=== PATIENT | female | born 1995 | race Caucasian/White ===

== ENCOUNTER 2025-05-19 14:48 | Outpatient (AMB) | payer OTHER, SELFPAY ==
--- OUTSIDE RECORDS SUMMARY | 2025-05-14 05:40 | XMS_ITS ---
Author Organization [facility] Address [address] [address] Care Team Providers Care Community Development Manager Name Role Phone VALORIE WINKLER M.D. Primary Care Provider Paty Peng Unavailable [phone] Allergies No Known Allergies Results Component Value Reference Range Notes Test, Urine Reviewed date:05/14/2025 12:12:48 PM Interpretation: Performing Lab: Notes/Report: Test, Urine Negative REASON FOR VISIT LEEP Medications Medication SIG (Take, Route, Frequency, Duration) Notes Start Date End Date Status Amphetamine-Dextroamp hetamine 10 MG Oral; Duration: 30 Days Active Blisovi FE 10/19 1-20 MG-MCG 1 tablet Orally Once a day; Duration: 90 days 02/10/2025 Active Dupixent 300 MG/2ML Subcutaneous; Duration: 28 Active Mirtazapine 15 MG Oral; Duration: 90 Going back to trazodone after this month Active Ativan 0.5 MG 1 tablet as needed Orally NIGHT BEFORE PROCEDURE AND DAY OF PROCEDURE, THEN BID, PRN; Duration: 7 days 04/19/2025 Active Flonase Active Zofran 4 MG 1 tablet Orally As needed; Duration: 30 days 10/30/2019 Active Vital Signs Height 60 in 05/14/2025 Weight 110 lbs 05/14/2025 BMI 21.48 kg/m2 05/14/2025 Blood pressure systolic 120 mm Hg 05/14/20 Blood pressure diastolic 82 mm Hg 025 Temperature 98.1 degrees Fahrenheit 05/14/20 LMP: 05/04/25 Encounters Encounter Location Date Provider Diagnosis [facility] [address] [place] [address] 05/14/2025 Paty Singh Carcinoma in situ of cervix, 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 Assessments Encounter Date Diagnosis (ICD Code) Assessment Notes Treatment Notes Treatment Clinical Notes Section Notes 05/14/2025 Carcinoma in situ of cervix, unspecified (ICD-10 - D06.9) Plan Of Treatment Next Appt Details Follow Up: 1 Week, Reason: Provider Name:Paty castorena, 02/16/2026 02:40:00 PM, [address], [address], [place], [address], Procedure Notes * Category Sub-Category Detail Notes LEEP (Loop electrosurgical excision procedure) Procedure Detail: General procedure, indicatio ns, risks, benefits, alternative treatments, and expected outcomes have been discussed with this patient. She has had an opportunity to ask questions, and all questions have been answered by me. She verbalizes understanding and to the best of my knowledge I feel the patient has been adequately informed and consented. The consent form has been signed. The patient was placed in the lithotomy position. The loop electrosurgical excision procedure (LEEP) speculum was inserted. The electrosurgical dispersive pad was placed on a thigh. The cervix was circumferentially anesthetized with 5 cc of 1% lidocaine with epinephrine. A cervical colposcopy exam had previously been performed. The cervix was bathed with 5% acetic acid and/or Lugol's solutions to clarify the location of lesions and the transformation zone. LEEP was attempted thrice but there was no cautery effect on the loop itself. The loop devise was changed and all the connections were checked to make sure these were all properly connected. The machine was turned off and on. Again LEEP was attempted but there was no cutting energy noted. After about 15 minutes of trying to fix whatever may be preventing the procedure, the LEEP machine still did not work. We finally had to end the procedure. The pat and her mother were advised to return when we have a working machine, Hopefully, this will be soon. The pat will take Ativan again prior to the procedure. She will refill the prescription we gave her. Pat and mother understood our predicament. Progress Notes * ZACK TUCKER:[birth year] (29 yo F)Acc No.[id number]:05/14/2025 Progress Note Patient: VIK JIMENEZ Appointment Provider: Sly Singh M.D. :1995 A ge:29 Y S ex:Female Date:05/14/2025 Address:[address] [place] [address] Pcp:VALORIE WINKLER M.D. Subjective: * Chief Complaints: * L EEP * HPI: N ew/Follow-up Patient Consult: PAT'S PAP TEST ON 02/10/25 SHOWED ASC-H. COLPOSCOPY DONE ON 04/05/25 SHOWED ALMA 2 AT THE 3, 6, AND 9 O'CLOCK POSITIONS AND ALMA 3 AT 12 O'CLOCK. WE HAD DISCUSSED TX OPTIONS AND SHE CHOSE TO PROCEED WITH LEEP. SHE UNDERSTANDS AND ACCEPTS RISKS OF THIS PROCEDURE. QUESTIONS HAD BEEN ANSWERED. SHE WAS PREMEDICATED WITH ATIVAN. * ROS: g eneral: no c hest pain. n o p alpitations. n o h eadache. n o c ough. n o s hortness of breath. n o f ever. n o u nexplained weight loss. n o n ausea/vomiting. n o c hange in bowel movements. n o blood in stool. n o g enitourinary complaints. n o s kin complaints. ? * Medical History: * Medications: T akingFlonase Zofran 4 MG Tablet 1 tablet Orally As needed Dupixent 300 MG/2ML Solution Prefilled Syringe Subcutaneous Mirtazapine 15 MG Tablet Oral , Notes to Pharmacist: Going back to trazodone after this monthAmphetamine- Dextroamphetamine 10 MG Tablet Oral Blisovi FE 10/19 1-20 MG-MCG Tablet 1 tablet Orally Once a day Ativan 0.5 MG Tablet 1 tablet as needed Orally NIGHT BEFORE PROCEDURE AND DAY OF PROCEDURE, THEN BID, PRN Taking Flonase Taking Zofran 4 MG Tablet 1 tablet Orally As needed Taking Dupixent 300 MG/2ML Solution Prefilled Syringe Subcutaneous Taking Mirtazapine 15 MG Tablet Oral , Notes to Pharmacist: Going back to trazodone after this monthTaking Amphetamine-Dextroamphetamine 10 MG Tablet Oral Taking Blisovi FE 1/20 1-20 MG-MCG Tablet 1 tablet Orally Once a day Taking Ativan 0.5 MG Tablet 1 tablet as needed Orally NIGHT BEFORE PROCEDURE AND DAY OF PROCEDURE, THEN BID, PRN DiscontinuedBlisovi FE 1/20 1-20 MG-MCG Tablet 1 tablet Orally Once a day Medication List reviewed and reconciled with the patientDiscontinued Blisovi FE 1/20 1-20 MG-MCG Tablet 1 tablet Orally Once a day Medication List reviewed and reconciled with the patient * Allergies: N .K.D.A.no[Allergies Verified] Objective: * Vitals: H t: 60 in, Wt:110lbs, BMI:21.48Index, BP:120/82mm Hg, Temp:98.1F. LMP: 05/04/25. Assessment: * Assessment: 1. C arcinoma in situ of cervix, unspecified - D06.9 Plan: * Treatment: Value Reference Range P regnancy Test, Urine Negative * SHARON Eldridge 05/14/2025 10:02:26 AM EDT > * Procedures: L EEP (Loop electrosurgical excision procedure): Procedure Detail: G eneral procedure, indications, risks, benefits, alternative treatments, and expected outcomes have been discussed with this patient. She has had an opportunity to ask questions, and all questions have been answered by me. She verbalizes understanding and to the best of my knowledge I feel the patient has been adequately informed and consented. The consent form has been signed. The patient was placed in the lithotomy position. The loop electrosurgical excision procedure (LEEP) speculum was inserted. The electrosurgical dispersive pad was placed on a thigh. The cervix was circumferentially anesthetized with 5 cc of 1% lidocaine with epinephrine. A cervical colposcopy exam had previously been performed. The cervix was bathed with 5% acetic acid and/or Lugol's solutions to clarify the location of lesions and the transformation zone. LEEP was attempted thrice but there was no cautery effect on the loop itself. The loop devise was changed and all the connections were checked to make sure these were all properly connected. The machine was turned off and on. Again LEEP was attempted but there was no cutting energy noted. After about 15 minutes of trying to fix whatever may be preventing the procedure, the LEEP machine still did not work. We finally had to end the procedure. The pat and her mother were advised to return when we have a working machine, Hopefully, this will be soon. The pat will take Ativan again prior to the procedure. She will refill the prescription we gave her. Pat and mother understood our predicament. . * Procedure Codes: * Follow Up: 1 Week * Images: Billing Information: * Visit Code: * Procedure Codes: * Sign off status: Completed true * Appointment Provider: Sly Singh M.D. Date: 0 05/14/2025 Generated for Cynthia neri/Angelina/Daitting on: 05/19/2025 03:43 PM EDT History and Physical Notes * HPI (History of Present Illness) Category Sub-Category Detail Notes Category Not es New/Follow-up Patient Consult PAT'S PAP TEST ON SHOWED ASC-H. COLPOSCOPY DONE ON 04/05/25 SHOWED ALMA 2 AT THE 3, 6, AND 9 O'CLOCK POSITIONS AND ALMA 3 AT 12 O'CLOCK. WE HAD DISCUSSED TX OPTIONS AND SHE CHOSE TO PROCEED WITH LEEP. SHE UNDERSTANDS AND ACCEPTS RISKS OF THIS PROCEDURE. QUESTIONS HAD BEEN ANSWERED. SHE WAS PREMEDICATED WITH ATIVAN.
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
--- OUTSIDE RECORDS SUMMARY | 2025-05-19 15:43 | XMS_ITS | Clinical Summary ---
Author Organization [facility] Address [address] [place] [id number] Phone Care Team Providers Care Button Bradder Name Role Phone Kamla Haro MD Primary Care Provide r Allergies No known active allergies Medications DUPIXENT SYRINGE 300 mg/2 mL subcutaneous syringe 2 Active BLISOVI FE 10/19, , 1 mg-20 mcg (21)/75 mg (7) per tablet 2 Active ondansetron (ZOFRAN) 4 MG tablet Take by mouth. 1 Active allergen immunotherapy Active mirtazapine (REMERON) 15 MG tablet TAKE 1 TABLET BY MOUTH NIGHTLY AT BEDTIME 90 tablet 5 Active Immunizations Immunization Administration Dates Next Due COVID-19 (Pre-07/22) Pfizer Vaccine, mRNA, PF ,09/18/2020 Family History Medical History Relation Comments Colon polyps Father noncancerous Irritable bowel syndrome Mother Irritable bowel syndrome Paternal Grandfather Ulcerative colitis Paternal Uncle Relation Status Comments Father Mother Paternal Grandfather Paternal Uncle Social History Tobacco Use Types Packs/Day Years Used Date Smoking Tobacco: Never Passive Smoke Exposure: Never Smokeless Tobacco: Never Tobacco Cessation:Counseling Given: Not Answered Alcohol Use Standard Drinks/Week Comments Yes 12 (1 standard drink = 0.6 oz pu re alcohol) Malt seltzer Education Answer Date Recorded Are you interested in more education? Not on sal e 01/25/2023 Are you concerned about learning? Not on file 01/25/2023 No 01/25/2023 No 01/25/2023 Digital Access Answer Date Recorded No 02/25/2023 No 02/25/2023 No 02/25/2023 Reliable internet access at home? Not on file 02/25/2023 Device with a working camera? Not on file Comments Unknown Sex and Gender Information Value Date Recorded Sex Assigned at Female 09/15/2021 3:37 PM EST Legal Sex Female 8:07 AM EDT Gender Identity Female 09/15/2021 3:37 PM EST Sexual Orientation Straight 09/15/2021 3: 37 PM EST Last Filed Vital Signs Vital Sign Reading Time Taken Comments Blood Pressure 122/86 08/07/2022 10:53 AM EST Pulse 96 08/07/2022 10:53 AM EST Temperature - - Respiratory Rate - - Oxygen Saturation 100% 08/07/2022 10:53 AM EST Inhaled Oxygen Concentration - - Weight 42.6 kg (94 lb) 08/07/2022 10:53 AM EST Height 152.4 cm (5') 08/07/2022 10:53 AM EST Body Mass Index 18.36 08/07/2022 10:53 AM EST Plan of Treatment Health Maintenance Due Date Last Done Comments HEPATITIS C SCREENING 2013 HIV ONE-TIME SCREENING (18-65 YEARS) 2013 PAP SMEAR 2016 DEPRESSION SCREENING 05/01/2024 05/01/2023 COVID-19 VACCINE ( season) 2024 10/11/2020, 09/18/2020 Adult Td,Tdap Booster 01/28/2033 01/28/2023, 007 HIB VACCINES Completed 01/26/1997, 10/1995, 02/13/1996, Additional history exists MENINGOCOCCAL VACCINES (ACWY) Completed 04/27/2014, 12/09/2006 HEPATITIS A VACCINES Completed 12/29/2014, 04/27/20 14 SMOKING STATUS SCREENING (Once After 26 Yrs) Completed 08/07/2022 MENINGOCOCCAL VACCINES (B) Aged Out N o longer eligible based on patient's age to complete this topic PNEUMOCOCCAL VACCINES (0-49 years) Aged Out No longer eligible based on patient's age to complete this topic Medical Devices Not on file Insurance [facility] [address] [place] [address]S [facility] [address] [address] [place], [place] [address]S S Member Subscriber Plan / Payer (Ef fective 2020-Present) Name:Erica Rodas Relation to Subscriber:Self Name:Erica Rodas Payer ID:Not on file Type:PPO Address: [place] [id number] Care Teams Button Bradder Relationship Specialty Start Date End Date Kamla Haro MD [address] [place] [id number] PCP - General Internal Medicine 09/15/21 Additional Source Comments The information contained in this document represents components of the legal health record. It is not the complete legal health record.[facility]
--- OUTSIDE RECORDS SUMMARY | 2025-05-19 15:43 | XMS_ITS | Encounter Summary ---
Author Organization [facility] Address [address] [place] [phone] Phone Care Team Providers Care Commodities Clerk Name Role Phone Shelia Awad MD Primary Care Provider [phone] Encounter Details Date Type Department Care Team (Late st Contact Info) Description 06/08/2013 Documentation [facility] Family Medicine [address] [place] [address] Family Medicine, Physician [address] [place], [place] [id number] Social History Tobacco Use Types Packs/Day Years Used Date Smoking Tobacco: Never Assessed Comments Unknown Sex and Gender Information Value Date Recorded Sex Assigned at Not on file Legal Sex Female 4:59 PM EDT Gender Identity Not on file Sexual Orientation Not on file documented as of this encounter Plan of Treatment Not on file documented as of this encounter Visit Diagnoses Not on filedocumented in this encounter Care Teams Commodities Clerk Relationship Specialty Start Date End Date Shelia Awad MD [address] [place] [phone] PCP - General 05/10/17 03/24/23 documented as of this encounter
--- OUTSIDE RECORDS SUMMARY | 2025-05-19 15:43 | XMS_ITS | Clinical Summary ---
Author Organization [facility], Address [address] [place] [address] [place] [address] Phone Care Team Providers Care County Extension Agent Name Role Phone Kamla Haro MD Primary Care Provider Allergies No known active allergies Medications ondansetron (ZOFRAN) 4 MG tablet TAKE 1 TABLET BY MOUTH EVERY 8 HOURS NEEDED FOR NAUSEA/VOMIT ING 08/11/2020 Active Blisovi FE 10/19 1-20 MG-MCG per tablet 06/09/2020 Active amphetamine-dex troamphetamine (ADDERALL) 10 MG tablet Take 2 tablets by mouth twice a day 07/03/2020 Active mirtazapine (REMERON) 15 MG tablet Take 15 mg by mouth every night Active Active Problems Problem Noted Date Diagnosed Date 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 Celiac disease 08/19/2020 Proteinuria Immunizations Immunization Administration Dates Next Due DTP 03/31/1996,02/13/1996,1995 DTaP 5 10/03/2000,04/30/1997 HPV, Quadrivalent 08/10/2008,04/21/2008,02/18/20 08 Hep A, 2 Dose 04/27/2014 Hep B, Adolescent or Pediatric 07/21/1996,1995,1995 Hepatitis A 12/29/2014 Hib (PRP-T) 01/26/1997,03/31/1996,02/13/1996 ,1995 IPV 10/03/2000 Influenza Split 09/10/2012,06/04/2011,08/29/2010 Influenza TIV (IM) 10/21/2013 Influenza, Unspecified 07/25/2022 MMR 10/05/1999,10/13/1996 Meningococcal MCV4P 04/27/2014,12/09/2006 OPV 03/31/1996,02/13/1996,1995 Tdap 12/09/2006 Varicella 02/18/2008,01/26/1997 Family History Medical History Relation Comments Kidney disease Father nephrolithiasis Nephrolithiasis Father Cancer Maternal Grandmother Diabetes Maternal Grandmother Heart disease Paternal Grandfather Kidney disease Paternal Grandfather Diabetes Paternal Grandmother Relation Status Comments Father Maternal Grandmother Paternal Grandfather Paternal Grandmother Social History Tobacco Use Types Packs/Day Years Used Date Smoking Tobacco: Never Tobacco Cessation:Counseling Given: Not Answered Alcohol Use Standard Drinks/Week Comments Yes 5 (1 standard drink = 0.6 oz pur e alcohol) Comments Unknown Sex and Gender Information Value Date Recorded Sex Assigned at Female 08/09/2021 10:40 AM EST Legal Sex Female 4:31 PM EST Gender Identity Female 08/09/2021 10:40 AM EST Sexual Orientation Straight 08/09/2021 10 :40 AM EST Last Filed Vital Signs Vital Sign Reading Time Taken Comments Blood Pressure 124/84 10/21/2024 1:45 PM EST Pulse 72 10/21/2024 1:45 PM EST Temperature - - Respiratory Rate - - Oxygen Saturation - - Inhaled Oxygen Concentration - - Weight 44.9 kg (99 lb) 09/02/2019 12:00 PM EST Height 152.4 cm (5') 09/02/2019 12:00 PM EST Body Mass Index 19.33 09/02/2019 12:00 PM EST Plan of Treatment Upcoming Encounters Date Type Department Care Team (Late st Contact Info) Description 10/27/2025 1:30 PM EST Office Visit [facility], [address] [place] [address] Arturo Tejada DO [address] [place] [address] Health Maintenance Due Date Last Done Comments Pneumococcal Vaccine: Peds ( 0 to 5 Years) and At-Risk Patients (6 to 49 Years) (1 of 2 - PCV) 2014 Influenza Vaccine (#1) 2025 2, 10/21/2013, 09/10/2012, Additional history exists Hepatitis B Vaccine Completed 07/21/1996, 1995, 1995 Insurance [facility] Care Teams County Extension Agent Relationship Specialty Start Date End Date Kamla Haro MD [address] [place] [address] PCP - General 08/04/19
== END 2025-05-19 15:19 | disposition home or self-care (01) ==
LOC: HO.HSM 14:48
PROVIDERS: PCP Internal Medicine; Referring Provider Internal Medicine; Visit Provider Registered Nurse
DX: F98.8 Other specified behavioral and emotional disorders with onset usually occurring in childhood and adolescence (principal)
CPT/HCPCS: 99213